=== PATIENT | female | born 1985 | race Caucasian/White ===

== ENCOUNTER 2016-11-04 11:39 | Emergency (ER) | payer BC ==
[2016-11-04 12:05] VITALS: BP 116/75
--- NOTE | 2016-11-04 12:13 | UC ---
Throat Pain/Nasal Apollo HPI - HPI Summary HPI Summary: sore throat x 3 days + nasal congestion , pnd, sinus pressure , no fever, no chills. - History of Current Complaint Chief Complaint: UCRespiratory Stated Complaint: SORE THROAT/SINUS COMPLAINT Time Seen by Provider: 11/04/16 11:59 Hx Obtained From: Patient Hx Last Menstrual Period: 10/13/16 Onset/Duration: Gradual Onset, Lasting Days - 3, Still Present Severity: Moderate Cough: None Associated Signs & Symptoms: Positive: Sinus Discomfort, Nasal Discharge. Negative: FB Sensation, Drooling, Wheezing, Hoarseness, Fever, Rash - Allergies/Home Medications Allergies/Adverse Reactions: Allergies Allergy/AdvReac Type Severity Reaction Status Date / Time Ciprofloxacin [From Cipro] AdvReac Intermediate See Comment Verified 11/04/16 11 :57 Home Medications: Home Medications Budesonide NASAL (NF) [Rhinocort Aqua (NF)] 1 spray .SEE ORDER DAILY 11/04/16 [ History Confirmed 11/04/16] Cetirizine* [ZyrTEC*] 10 mg PO BEDTIME 11/04/16 [History Confirmed 11/04/16] PMH/Surg Hx/FS Hx/Imm Hx Endocrine History Of: Denies: Diabetes, Thyroid Disease Cardiovascular History Of: Reports: Cardiac Disorders - s/p Atrial and SVT Denies: Hypertension, Congestive Heart Failure Respiratory History Of: Denies: COPD, Asthma GI/ History Of: Denies: Ulcer, Renal Disease Other History Of: Negative For: Anticoagulant Therapy - Surgical History Surgical History: Yes Surgery Procedure, Year, and Place: Cardiac Ablation x 2 - Family History Known Family History: Negative: Hypertension - Social History Alcohol Use: Rare Substance Use Type: None Smoking Status (MU): Never Smoked Tobacco Review of Systems Constitutional: Negative Skin: Negative Eyes: Negative ENT: Sore Throat, Nasal Discharge Respiratory: Negative Cardiovascular: Negative Gastrointestinal: Negative All Other Systems Reviewed And Are Negative: Yes Physical Exam Triage Information Reviewed: Yes Appearance: Well-Appearing, No Pain Distress, Well-Nourished Vital Signs: Initial Vital Signs Temp 99.9 F 11/04/16 12:00 Pulse 92 11/04/16 12:00 Resp 18 11/04/16 12:00 BP 116/75 11/04/16 12:00 Pulse Ox 100 11/04/16 12:00 Vital Signs Reviewed: Yes Eyes: Positive: Conjunctiva Clear ENT: Positive: Normal ENT inspection, Hearing grossly normal, Pharyngeal erythema, Nasal congestion, Nasal drainage, TMs normal Neck exam: Normal Neck: Positive: Supple, Nontender, No Lymphadenopathy Respiratory: Positive: Chest non-tender, Lungs clear, Normal breath sounds Cardiovascular: Positive: RRR, No Murmur, Pulses Normal Abdominal Exam: Normal Skin Exam: Normal Throat Pain/Nasal Course/Dx - Differential Dx/Diagnosis Provider Diagnoses: RAPID PHARYNGITIS Discharge - Discharge Plan Condition: Stable Disposition: HOME Prescriptions: Amoxicillin (*) 875 mg PO BID #20 tab Patient Education Materials: Pharyngitis (ED) Referrals: Maggie Aguilar MD [Primary Care Provider] - If Needed Additional Instructions: positive RAPID STREP MOST LIKELY VIRAL PHARYNGITIS FOLLOW UP NEEDED
== END 2016-11-04 12:42 | disposition home or self-care (01) ==
LOC: UCCORT 11:39
DX: J02.0 Streptococcal pharyngitis (principal); Z88.1 Allergy status to other antibiotic agents
CPT/HCPCS: 87651; 99212; G0463

== ENCOUNTER 2016-11-27 09:31 | Emergency (ER) | payer BC ==
[2016-11-27 10:31] VITALS: BP 111/90
--- NOTE | 2016-11-27 10:43 | UC ---
Respiratory Complaint HPI - HPI Summary HPI Summary: c/o scratchy throat since Thursday, states fever, non-productive cough since Thursday with muscle pain. Concerned for flu or bronchitis. Pain on inspiration also. SHe admits to having h/o cardiac ablation and noted heart racing yesterday. She had cardiac ablation several yrs ago for atrial fibrillation. She feels that her sx have been coming back slowly over the past several months. She saw cardio Dr Quevedo at [place] and had a 30 day event monitor on that showed extra complexes and she was referred back to her EP cardio who is now in [place], [place] - she has appt 12/04 with him. She had these sx for 10 mins yesterday afternoon and have not recurred since then. she denies any feelings of pre-syncope. no chest pains. no SOB. Dtr was exposed with flu at her dad's house over the wknd on 11/22. she was sick with slight cough this week. Pt c/o a lot of sweating and feeling fevberish. Has not taken any cold meds or decongestants. SHe is a slightly poor historian. She has menses currently. - History of Current Complaint Chief Complaint: UCRespiratory Stated Complaint: COUGH,FEVER,CHILLS Time Seen by Provider: 11/27/16 10:20 Hx Last Menstrual Period: 11/25/16 - Allergies/Home Medications Allergies/Adverse Reactions: Allergies Allergy/AdvReac Type Severity Reaction Status Date / Time Ciprofloxacin [From Cipro] AdvReac Intermediate See Comment Verified 11/27/16 10 :13 Home Medications: Home Medications Acetaminophen 500 mg PO BID PRN 11/27/16 [History Confirmed 11/27/16] PMH/Surg Hx/FS Hx/Imm Hx Previously Healthy: Yes Endocrine History Of: Denies: Diabetes, Thyroid Disease Cardiovascular History Of: Reports: Cardiac Disorders - s/p Atrial and SVT Denies: Hypertension, Congestive Heart Failure Respiratory History Of: Denies: COPD, Asthma GI/ History Of: Denies: Ulcer, Renal Disease Other History Of: Negative For: Anticoagulant Therapy - Surgical History Surgical History: Yes Surgery Procedure, Year, and Place: Cardiac Ablation x 2 - Family History Known Family History: Negative: Hypertension - Social History Alcohol Use: Rare Substance Use Type: None Smoking Status (MU): Never Smoked Tobacco - Immunization History Most Recent Influenza Vaccination: not this season Review of Systems Constitutional: Fever, Chills, Fatigue Skin: Negative Eyes: Negative ENT: Nasal Discharge Respiratory: Cough Cardiovascular: Palpitations Gastrointestinal: Negative Genitourinary: Negative Motor: Negative Neurovascular: Negative Musculoskeletal: Myalgia Neurological: Negative Psychological: Negative All Other Systems Reviewed And Are Negative: Yes Physical Exam Triage Information Reviewed: Yes Appearance: Well-Nourished, Ill-Appearing - mild Vital Signs: Initial Vital Signs Temp 98.7 F 11/27/16 10:15 Pulse 84 11/27/16 10:15 Resp 16 11/27/16 10:15 BP 111/90 11/27/16 10:15 Pulse Ox 100 11/27/16 10:15 Vital Signs Reviewed: Yes Eye Exam: Normal ENT: Positive: Pharynx normal, TMs normal, Other: - no sinus tenderness. Negative: Tonsillar swelling, Tonsillar exudate, Muffled/hoarse voice Dental Exam: Normal Neck exam: Normal Neck: Positive: Supple, Nontender, No Lymphadenopathy Respiratory: Positive: Chest non-tender, Lungs clear, Normal breath sounds, No respiratory distress, No accessory muscle use. Negative: Crackles, Rhonchi, Stridor, Wheezing Cardiovascular Exam: Normal Cardiovascular: Positive: RRR, No Murmur, Pulses Normal, Brisk Capillary Refill Abdominal Exam: Normal Abdomen Description: Positive: Nontender, Soft Musculoskeletal Exam: Normal Neurological Exam: Normal Psychological Exam: Normal Skin: Positive: Other - perspiring. Negative: rashes UC Diagnostic Evaluation - Laboratory O2 Sat by Pulse Oximetry: 100 Respiratory Course/Dx - Course Course Of Treatment: Rapid flu pos for B. EKG - NSR with several premature complexes, nml axis, no AV/IV changes, no delta wave, no ST/T changes. premature complexes are new from 2013. She is stable at this time. She has been in midst of cardiac work up w h/o ablation. SHe has appt with her EP room service clerk on 12/04 for recurring sx over past several months. I have stressed to her the importance of rest and fluids and she is to go to[facility] via ambulance with any worsening sx, dizziness or pre/syncope. She understood me well and is agreeable with this plan. - Differential Dx/Diagnosis Differential Diagnosis/HQI/PQRI: Asthma, Bronchitis, Influenza, Lower Resp Infection Provider Diagnoses: Influenza B, palpitations. Discharge - Discharge Plan Condition: Stable Disposition: HOME Patient Education Materials: Influenza (ED) Forms: *Work Release Referrals: No Primary Care Phys,NOPCP [Primary Care Provider] - Additional Instructions: Drink plenty of fluids. You should go to [facility] (as that is where Dr Quevedo works through) if you feel lightheaded or dizzy or feel like you will pass out or heart racing worsens prior to your follow up with your room service clerk on . Make sure to schedule an appt at your PCP office, [facility] for tomorrow. We discussed that you have exceeded the time frame for tamiflu. Tylenol and rest is recommended for the body aches and fever. We discussed that you are very contagious and caution should be taken. Make sure to get your flu shot next year.
== END 2016-11-27 11:18 | disposition home or self-care (01) ==
LOC: UCCORT 09:31
DX: J11.1 Influenza due to unidentified influenza virus with other respiratory manifestations (principal); R00.2 Palpitations; Z88.1 Allergy status to other antibiotic agents
CPT/HCPCS: 87502; 93005; 99211; G0463

== ENCOUNTER 2017-04-19 11:56 | Emergency (ER) | payer BC ==
[2017-04-19 12:36] VITALS: BP 119/72
--- NOTE | 2017-04-19 12:52 | UC ---
Skin Complaint HPI - HPI Summary HPI Summary: patient has a bite on the back of the right heel, it has become swollen and red , very itchy - History of Current Complaint Chief Complaint: UCSkin Time Seen by Provider: 04/19/17 12:39 Stated Complaint: INSECT BITE-RIGHT ANKLE Hx Obtained From: Patient Hx Last Menstrual Period: 03/30/17 Onset/Duration: Sudden Onset, Lasting Days Skin Exposure Onset/Duration: Days Ago Timing: Constant Onset Severity: Mild Current Severity: Moderate Location: Discrete, Foot (Right) Character: Swelling, Pruritus, Redness Aggravating: Nothing Alleviating: Nothing - Allergy/Home Medications Allergies/Adverse Reactions: Allergies Allergy/AdvReac Type Severity Reaction Status Date / Time Ciprofloxacin [From Cipro] AdvReac Intermediate See Comment Verified 11/27/16 10 :13 Review of Systems Constitutional: Negative Skin: Other - redness and swelling of the right heel/ankle ENT: Negative Respiratory: Negative Cardiovascular: Negative Gastrointestinal: Negative Genitourinary: Negative Motor: Negative Neurovascular: Negative Musculoskeletal: Negative Neurological: Negative Psychological: Negative All Other Systems Reviewed And Are Negative: Yes PMH/Surg Hx/FS Hx/Imm Hx Previously Healthy: Yes Other History Of: Negative For: Anticoagulant Therapy - Surgical History Surgical History: Yes Surgery Procedure, Year, and Place: Cardiac Ablation x 2 - Family History Known Family History: Negative: Hypertension - Social History Alcohol Use: Rare Substance Use Type: None Smoking Status (MU): Never Smoked Tobacco - Immunization History Most Recent Influenza Vaccination: not this season Physical Exam Triage Information Reviewed: Yes Vital Signs: Initial Vital Signs Temp 98.8 F 04/19/17 12:31 Pulse 73 04/19/17 12:31 Resp 14 04/19/17 12:31 BP 119/72 04/19/17 12:31 Pulse Ox 100 04/19/17 12:31 Vital Signs Reviewed: Yes Eye Exam: Normal ENT Exam: Normal ENT: Positive: Hearing grossly normal, Pharynx normal, TMs normal Dental Exam: Normal Neck exam: Normal Respiratory Exam: Normal Respiratory: Positive: Chest non-tender, Lungs clear, Normal breath sounds Cardiovascular Exam: Normal Cardiovascular: Positive: RRR, No Murmur, Pulses Normal Abdominal Exam: Normal Abdomen Description: Positive: Nontender, No Organomegaly, Soft Skin: Positive: Other - 5 cm area of erythema surrounding a insect bite, mild swelling of the posterior aspect of ankle Course/Dx - Course Course Of Treatment: hx obtained, exam performed ,meds reviewed, treated for localized allergic reaction - Differential Diagnoses - Skin Complaint Differential Diagnoses: Abscess, Allergic Reaction, Cellulitis, Contact Dermatitis, Urticaria - Diagnoses Provider Diagnoses: local allergic reaction to insect bite Discharge - Discharge Plan Condition: Stable Disposition: HOME Prescriptions: predniSONE TAB* [Deltasone TAB*] 40 mg PO DAILY #14 tab Patient Education Materials: General Allergic Reaction (ED) Referrals: No Primary Care Phys,NOPCP [Primary Care Provider] - Additional Instructions: 1. take the prednisone as prescribed. 2. Warm foot soaks for the next few days. 3. follow up if not improving.
== END 2017-04-19 12:56 | disposition home or self-care (01) ==
LOC: UCCORT 11:56
DX: S90.861A Insect bite (nonvenomous), right foot, initial encounter (principal); W57.XXXA Bitten or stung by nonvenomous insect and other nonvenomous arthropods, initial encounter; Y93.9 Activity, unspecified; Y92.9 Unspecified place or not applicable; Z88.1 Allergy status to other antibiotic agents
CPT/HCPCS: 99212; G0463

== ENCOUNTER 2018-03-03 19:06 | Emergency (ER) | payer BC ==
[2018-03-03 19:34] VITALS: BP 109/71
--- NOTE | 2018-03-03 19:53 | UC ---
Respiratory Complaint HPI - HPI Summary HPI Summary: Patient complains of fever and fatigue for 2 days now, today fever seems resolved but has continued and worsening cough. No exposure to anyone else with similar illnesses. Patient is concerned as when she had fever her heart rate went up in the 120s and she is concerned about having problems again with SVT. Patient educated to normal body response of fever as being tachycardic patient understands - History of Current Complaint Chief Complaint: UCGeneralIllness Stated Complaint: COUGH, FEVER Time Seen by Provider: 03/03/18 19:40 Hx Obtained From: Patient Hx Last Menstrual Period: 02/01/18 ?: No Onset/Duration: Sudden Onset, Lasting Days, Still Present Timing: Constant Pain Intensity: 0 Character: Cough: Nonproductive Aggravating Factors: Nothing Alleviating Factors: Nothing Associated Signs And Symptoms: Positive: Fever, Chills - Allergies/Home Medications Allergies/Adverse Reactions: Allergies Allergy/AdvReac Type Severity Reaction Status Date / Time ciprofloxacin Allergy Diaphoresis Verified 03/03/18 19:30 Home Medications: Home Medications Levocetirizine Dihydrochloride [Xyzal] 5 mg PO DAILY 03/03/18 [History Confirmed 03/03/18] PMH/Surg Hx/FS Hx/Imm Hx Previously Healthy: No Cardiovascular History: Other - svt Other Cardiovascular History: svt Other History Of: Negative For: Anticoagulant Therapy - Surgical History Surgical History: Yes Surgery Procedure, Year, and Place: Cardiac Ablation x 3 - Family History Known Family History: Negative: Hypertension - Social History Occupation: Employed Full-time Lives: With Family Alcohol Use: Rare Substance Use Type: None Smoking Status (MU): Never Smoked Tobacco - Immunization History Most Recent Influenza Vaccination: not this season Review of Systems Constitutional: Fever, Chills, Fatigue Skin: Negative Eyes: Negative ENT: Negative Respiratory: Cough Cardiovascular: Negative Gastrointestinal: Negative Genitourinary: Negative Motor: Negative Neurovascular: Negative Musculoskeletal: Negative Neurological: Negative Psychological: Negative Is Patient Immunocompromised?: No All Other Systems Reviewed And Are Negative: Yes Physical Exam Triage Information Reviewed: Yes Appearance: Well-Appearing, No Pain Distress, Well-Nourished Vital Signs: Initial Vital Signs Temp 98.7 F 03/03/18 19:27 Pulse 94 03/03/18 19:27 Resp 17 03/03/18 19:27 BP 109/71 03/03/18 19:27 Pulse Ox 98 03/03/18 19:27 Vital Signs Reviewed: Yes Eye Exam: Normal Eyes: Positive: Conjunctiva Clear ENT Exam: Normal ENT: Positive: Normal ENT inspection, Hearing grossly normal, Pharynx normal, TMs normal, Uvula midline. Negative: Nasal congestion, Trismus, Muffled voice, Hoarse voice, Dental tenderness, Sinus tenderness Dental Exam: Normal Neck exam: Normal Neck: Positive: Supple, Nontender, No Lymphadenopathy Respiratory Exam: Normal Respiratory: Positive: Chest non-tender, Lungs clear, Normal breath sounds, No respiratory distress, No accessory muscle use Cardiovascular Exam: Normal Cardiovascular: Positive: RRR, Pulses Normal, Brisk Capillary Refill Musculoskeletal Exam: Normal Musculoskeletal: Positive: Strength Intact, ROM Intact, No Edema Neurological Exam: Normal Neurological: Positive: Alert, Muscle Tone Normal Psychological Exam: Normal Skin Exam: Normal UC Diagnostic Evaluation - Laboratory O2 Sat by Pulse Oximetry: 98 Respiratory Course/Dx - Course Course Of Treatment: Patient states she is unable to take albuterol 2 to tachycardic side effects. Patient will be Rx'd with Zithromax and may use Robitussin when necessary for cough increase fluids rest Tylenol ibuprofen should pain or fever return recheck with PCP - Differential Dx/Diagnosis Provider Diagnoses: Acute bronchitis Discharge - Sign-Out/Discharge Documenting (check all that apply): Discharge/Admit/Transfer - Discharge Plan Condition: Stable Disposition: HOME Prescriptions: Azithromycin TAB* [Zithromax TAB (Z-SHEFALI) 250 mg #6 tabs] 250 mg PO DAILY #4 tab Patient Education Materials: Antitussives (By mouth), Acute Bronchitis (ED) Referrals: JESSICA Hunt [Medical Doctor] - If Needed - Billing Disposition and Condition Condition: STABLE Disposition: Home
[2018-03-03] MEDS ORDERED: Azithromycin TAB* 250 MG PO ONE (20:10)
== END 2018-03-03 20:20 | disposition home or self-care (01) ==
LOC: UCCORT 19:06
DX: J20.9 Acute bronchitis, unspecified (principal); Z88.1 Allergy status to other antibiotic agents
CPT/HCPCS: 81003; 84702; 87086; 99212; A9270-GY; G0463

== ENCOUNTER 2018-06-15 08:41 | Emergency (ER) | payer BC ==
[2018-06-15 09:05] VITALS: BP 129/81
--- NOTE | 2018-06-15 09:27 | UC ---
Throat Pain/Nasal Apollo HPI - HPI Summary HPI Summary: sore throat x 1 day no cold symptoms, no fever, + chills hx of frequent strep throat - History of Current Complaint Chief Complaint: UCGeneralIllness Stated Complaint: SORE THROAT Time Seen by Provider: 06/15/18 09:05 Hx Obtained From: Patient Hx Last Menstrual Period: 06/09/18 ?: No Onset/Duration: Gradual Onset, Lasting Days - 1, Still Present Severity: Moderate Pain Intensity: 7 Cough: None Associated Signs & Symptoms: Negative: Dysphagia, FB Sensation, Drooling, Wheezing, Hoarseness, Sinus Discomfort, Nasal Discharge, Fever, Vomiting, Rash - Allergies/Home Medications Allergies/Adverse Reactions: Allergies Allergy/AdvReac Type Severity Reaction Status Date / Time ciprofloxacin Allergy Diaphoresis Verified 06/15/18 09:02 Home Medications: Home Medications Norethindrone AC-Eth Estradiol [Loestrin /-21 1-20 mg-Mcg] 1 tab PO DAILY [History Confirmed 06/15/18] PMH/Surg Hx/FS Hx/Imm Hx Previously Healthy: Yes Other History Of: Negative For: Anticoagulant Therapy - Surgical History Surgical History: Yes Surgery Procedure, Year, and Place: Cardiac Ablation x 3 - Family History Known Family History: Negative: Hypertension - Social History Alcohol Use: Rare Substance Use Type: None Smoking Status (MU): Never Smoked Tobacco - Immunization History Most Recent Influenza Vaccination: not this season Review of Systems Constitutional: Chills, Fatigue Skin: Negative Eyes: Negative ENT: Sore Throat Respiratory: Negative Cardiovascular: Negative Is Patient Immunocompromised?: No All Other Systems Reviewed And Are Negative: Yes Physical Exam Triage Information Reviewed: Yes Appearance: Well-Appearing, No Pain Distress, Well-Nourished Vital Signs: Initial Vital Signs Temp 99 F 06/15/18 09:00 Pulse 95 06/15/18 09:00 Resp 15 06/15/18 09:00 BP 129/81 06/15/18 09:00 Pulse Ox 100 06/15/18 09:00 Vital Signs Reviewed: Yes Eye Exam: Normal Eyes: Positive: Conjunctiva Clear ENT: Positive: Pharyngeal erythema, Tonsillar swelling, Tonsillar exudate. Negative: Nasal congestion, Nasal drainage, TMs normal, TM bulging, TM dull, TM red, Trismus Neck: Positive: Supple, Nontender, No Lymphadenopathy Respiratory: Positive: Chest non-tender, Lungs clear, Normal breath sounds Cardiovascular: Positive: RRR, No Murmur, Pulses Normal Throat Pain/Nasal Course/Dx - Differential Dx/Diagnosis Provider Diagnoses: pharyngitis Discharge - Sign-Out/Discharge Documenting (check all that apply): Patient Departure All imaging exams completed and their final reports reviewed: No Studies - Discharge Plan Condition: Stable Disposition: HOME Prescriptions: Amoxicillin PO (*) [Amoxicillin 875 MG (*)] 875 mg PO BID #20 tab Patient Education Materials: Pharyngitis (ED) Referrals: No Primary Care Phys,NOPCP [Primary Care Provider] - If Needed - Billing Disposition and Condition Condition: STABLE Disposition: Home
== END 2018-06-15 09:29 | disposition home or self-care (01) ==
LOC: UCCORT 08:41
DX: J02.9 Acute pharyngitis, unspecified (principal); Z88.1 Allergy status to other antibiotic agents
CPT/HCPCS: 87651; 99212; G0463

== ENCOUNTER 2019-07-10 10:53 | Emergency (ER) | payer BC ==
[2019-07-10 11:27] VITALS: BP 110/79
--- NOTE | 2019-07-10 11:37 | UC ---
Respiratory Complaint HPI - HPI Summary HPI Summary: 34 year old female with progressively worsening sx of nasal congestion, cough and sinus pressure, on/off sore throat over the past week. No associated fever, chills nor night sweats. 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 - History of Current Complaint Chief Complaint: UCGeneralIllness Stated Complaint: SINUS COMPLAINT Time Seen by Provider: 07/10/19 11:26 Hx Last Menstrual Period: 06/28/19 Pain Intensity: 8 - Allergies/Home Medications Allergies/Adverse Reactions: Allergies Allergy/AdvReac Type Severity Reaction Status Date / Time ciprofloxacin Allergy Diaphoresis Verified 07/10/19 11:27 PMH/Surg Hx/FS Hx/Imm Hx Previously Healthy: Yes Cardiovascular History: Other - SVT s/p ablation Other History Of: Negative For: Anticoagulant Therapy - Surgical History Surgical History: Yes Surgery Procedure, Year, and Place: Cardiac Ablation x 3 - Family History Known Family History: Negative: Hypertension - Social History Alcohol Use: Rare Substance Use Type: None Smoking Status (MU): Never Smoked Tobacco - Immunization History Most Recent Influenza Vaccination: not this season Review of Systems All Other Systems Reviewed And Are Negative: Yes Constitutional: Positive: Negative Skin: Positive: Negative Eyes: Positive: Negative ENT: Positive: Nasal Discharge, Sinus Congestion, Sinus Pain/Tenderness. Negative: Epistaxis, Sore Throat Respiratory: Negative: Shortness Of Breath, Cough Cardiovascular: Negative: Palpitations, Chest Pain Gastrointestinal: Negative: Abdominal Pain, Vomiting, Diarrhea, Nausea Genitourinary: Positive: Negative Motor: Positive: Negative Neurovascular: Positive: Negative Musculoskeletal: Positive: Negative Neurological: Positive: Negative Psychological: Positive: Negative Is Patient Immunocompromised?: No Physical Exam Triage Information Reviewed: Yes Vital Signs: Initial Vital Signs Temp 98.6 F 07/10/19 11:23 Pulse 87 07/10/19 11:23 Resp 16 07/10/19 11:23 BP 110/79 07/10/19 11:23 Pulse Ox 100 07/10/19 11:23 Vital Signs Reviewed: Yes Eye Exam: Normal ENT: Positive: Pharynx normal, Nasal congestion, TMs normal, Sinus tenderness - maxillary and frontal Neck: Positive: Supple, Nontender, No Lymphadenopathy Respiratory: Positive: Chest non-tender, Lungs clear, Normal breath sounds Cardiovascular: Positive: RRR, No Murmur Abdomen Description: Positive: Nontender, Soft Musculoskeletal Exam: Normal Neurological Exam: Normal Psychological Exam: Normal Skin Exam: Normal Respiratory Course/Dx - Differential Dx/Diagnosis Differential Diagnosis/HQI/PQRI: Other - Allergies Provider Diagnosis: Sinusitis Discharge ED - Sign-Out/Discharge Documenting (check all that apply): Patient Departure All imaging exams completed and their final reports reviewed: No Studies - Discharge Plan Condition: Stable Disposition: HOME Prescriptions: Amoxicillin PO (*) [Amoxicillin 875 MG (*)] 875 mg PO BID 10 Days #20 tab Patient Education Materials: Sinusitis (ED) Referrals: No Primary Care Phys,NOPCP [Primary Care Provider] - - Billing Disposition and Condition Condition: STABLE Disposition: Home
== END 2019-07-10 12:01 | disposition home or self-care (01) ==
LOC: UCCORT 10:53
DX: J32.9 Chronic sinusitis, unspecified (principal); Z88.1 Allergy status to other antibiotic agents
CPT/HCPCS: 99212; G0463